=== PATIENT | female | born 1995 | race African-American/Black ===

== ENCOUNTER 2024-06-17 10:31 | Emergency (ER) | payer MEDICAID, SELFPAY ==
[2024-06-17 10:33] VITALS: BMI 30.2
[2024-06-17 10:59] VITALS: BP 116/73; PULSE 70; RESP 16; TEMP 36.8; O2SAT 98; BMI 30.2
--- NOTE | 2024-06-17 11:01 | XR_ITS ---
Examination: Pelvic ultrasound, transabdominal, complete Technique: Transabdominal ultrasound of the pelvis performed using grayscale imaging Date and time of exam: June 17, 2024 1237 hours INDICATIONS: 4 months ago with onset vaginal bleeding beginning 2 days ago FINDINGS: Uterus 9.2 cm endometrial stripe 0.8 cm No uterine mass or intrauterine gestation Right ovary 3.1 cm arterial flow Left ovary 2.7 cm arterial flow IMPRESSION: No uterine mass or intrauterine gestation
[2024-06-17 11:37] LABS: Collection Type, Urine Clean Catch; WBC,Urine 0 /hpf (0-5)
[2024-06-17 11:38] LABS: Basophils # (Auto) 0.1 Thou/mm3 (0.0-0.2); Basophils % (Auto) 1 % (0-2.5); Eosinophils # (Auto) 0.5 Thou/mm3 (0.0-0.5); Eosinophils % (Auto) 5 % (0-10); Hematocrit 32.9 % (36.0-46.0); Hemoglobin 11.6 g/dL (12.0-16.0); Immature Granulocytes % (Auto) 0 % (0-0); Immature Granulocytes Auto 0.02 Thou/mm3 (0.00-0.00); Lymphocytes # (Auto) 1.6 Thou/mm3 (1.0-4.8); Lymphocytes % (Auto) 19 % (10-50); Mean Corpuscular HGB Conc 35.3 g/dl (31.0-37.0); Mean Corpuscular Hemoglobin 26.7 pg (25.0-35.0); Mean Corpuscular Volume 76 fL (80-100); Monocytes # (Auto) 0.7 Thou/mm3 (0.0-0.8); Monocytes % (Auto) 9 % (0-12); Neutrophils # (Auto) 5.6 Thou/mm3 (1.8-7.7); Neutrophils % (Auto) 66 % (37-80); Nucleated Red Blood Cell % 0 /100 WBC (0); Platelet Count 380 Thou/mm3 (140-440); Red Blood Count 4.35 Miln/mm3 (4.00-5.20); White Blood Count 8.5 Thou/mm3 (3.6-11.0)
[2024-06-17 11:47] LABS: Bacteria,Urine Rare; Bilirubin,Urine Negative (Negative); Blood,Urine 3+ (Negative); Clarity,Urine Turbid (Clear/Hazy); Culture Indicated,Urine Not Indicated; Glucose, Urine Negative (Negative); Ketones,Urine Negative (Negative); Leukocyte Esterase,Urine Negative (Negative); Nitrite,Urine Negative (Negative); Protein,Urine 1+ (Neg - Trace); RBC,Urine 51 /hpf (0-3); Specific Gravity,Urine 1.023 (1.001-1.035); Squamous Epithelial Cell,Urine 2 /hpf (0-5); Urobilinogen,Urine Negative mg/dL (0.0-1.0)
[2024-06-17 11:55] LABS: Color,Urine Amber (Lt Yel-Yel)
[2024-06-17 11:57] LABS: Alanine Aminotransferase 16 U/L (10-49); Albumin, Serum 3.9 gm/dL (3.5-5.0); Albumin/Globulin Ratio 1.4 (1.2-2.2); Alkaline Phosphatase 110 U/L (46-116); Anion Gap 7 (7-16); Aspartate Amino Transferase 18 U/L (0-34); BUN/Creatinine Ratio 19 Ratio (12-20); Bilirubin,Total 0.7 mg/dL (0.3-1.2); Blood Urea Nitrogen 13 mg/dL (9-23); Calcium 8.7 mg/dL (8.3-10.6); Calcium (Corrected) 8.8 mg/dL (8.5-10.1); Carbon Dioxide 27.2 mMol/L (20.0-31.0); Chloride 107 mMol/L (98-107); Creatinine (Component) 0.7 mg/dL (0.6-1.3); Estimated Creatinine Clearance 116.9 mL/min (>60); Globulin 2.7 gm/dL (2.3-3.5); Glucose 89 mg/dL (74-106); Osmolality,Calculated 280 (275-295); Potassium 3.9 mMol/L (3.4-5.1); Sodium 141 mMol/L (136-145); Total Protein 6.6 gm/dL (5.7-8.2); eGFR > 60 See Note
[2024-06-17 11:58] LABS: Partial Thromboplastin Time 28.3 Seconds (22.0-36.0); Prothrombin Time 11.1 Seconds (9.0-12.2)
[2024-06-17 12:03] LABS: Strep A Rapid Negative (Negative)
[2024-06-17 12:10] LABS: HCG,Qualitative Serum Negative
--- NOTE | 2024-06-17 13:01 | EDNOTE_ITS ---
ED Female Urogenital RME/HPI General Chief complaint: Urogenital-Female Stated complaint: VAGINAL BLEEDING X 2 DAYS Time Seen by Provider: 06/17/24 10:46 Arrival date/time: 06/17/24 10:31 29-year-old female presents to the emergency department today stating that she is having vaginal bleeding patient reports this is her first period after having her baby 3 months ago patient reports history of ovarian cysts, PCOS, ulcerative colitis and Crohn's disease Limitations: no limitations Related Data Allergies Allergy/AdvReac Type Severity Reaction Status Date / Time risperidone Allergy Verified 06/17/24 10:42 Sulfa (Sulfonamide Allergy Verified 06/17/24 10:42 Antibiotics) Review of Systems Review of Systems Systems Reviewed: All systems reviewed, normal except as documented Constitutional Constitutional: Reports system reviewed and no additional complaints, except as documented, Denies fever(s) and Denies headache(s) Eyes Eyes: Reports system reviewed and no additional complaints, except as documented and Denies blurry vision ENT Ears, Nose, Mouth, and Throat: Reports system reviewed and no additional complaints, except as documented, Denies headache(s), Denies nasal congestion and Denies nasal discharge Cardiovascular Cardiovascular: Reports system reviewed and no additional complaints, except as documented, Denies chest pain and Denies dyspnea Respiratory Respiratory: Reports system reviewed and no additional complaints, except as documented, Denies chest congestion, Denies cough and Denies dyspnea Gastrointestinal Gastrointestinal: Reports system reviewed and no additional complaints, except as documented and Denies abdominal pain Genitourinary Genitourinary: Reports system reviewed and no additional complaints, except as documented and Reports abnormal vaginal bleeding Integumentary/Breasts Skin/Breast: Reports system reviewed and no additional complaints, except as documented and Denies rash Neurologic Neurologic: Reports system reviewed and no additional complaints, except as documented, Reports as per HPI and Denies headache(s) Past Medical History Social History SMOKING STATUS: Current some day smoker ED Exam General Limitations: Present no limitations General appearance: Present alert and in no apparent distress Head Head exam: Present atraumatic, normocephalic and normal inspection Eye Eye exam: Present normal appearance, PERRL and EOMI; Absent conjunctival injection ENT ENT exam: Present normal exam, normal oropharynx and mucous membranes moist Neck Neck exam: Present normal inspection, full ROM and trachea midline Chest Chest inspection: Present normal inspection and symmetric chest wall rise Respiratory Respiratory exam: Present normal lung sounds bilaterally Cardiovascular Cardiovascular exam: Present regular rate, normal rhythm and normal heart sounds Abdominal Exam Abdominal exam: Present soft and normal bowel sounds; Absent distention, tenderness, guarding, rebound or rigidity Extremities Exam Extremities exam: Present normal inspection and full ROM Back Exam Back exam: Present normal inspection and full ROM Neurological Exam Neurological exam: Present alert, oriented X3, CN II-XII intact, normal gait and reflexes normal; Absent motor sensory deficit Psychiatric Psychiatric exam: Present normal affect and normal mood Skin Skin exam: Present warm, dry, intact and normal color Course Quality Measures none Orders Category Date Time Status US pelvic complete Stat Exams 06/17/24 11:01 Taken CBC Stat Lab 06/17/24 11:01 Completed Comprehensive Metabolic Panel Stat Lab 06/17/24 11:01 Completed HCG,Qualitative Serum Stat Lab 06/17/24 11:01 Completed Partial Thromboplastin Time Stat Lab 06/17/24 11:01 Completed Prothrombin Time with INR Stat Lab 06/17/24 11:01 Completed Strep A Rapid Stat Lab 06/17/24 11:00 Completed UA, C/S IF [Urinalysis, C/S if Indicated] Stat Lab 06/17/24 11:00 Completed Vital Signs Vital signs: Vital Signs Temperature 98.3 F 06/17/24 10:59 Pulse Rate 70 06/17/24 10:59 Respiratory Rate 16 06/17/24 10:59 Blood Pressure 116/73 06/17/24 10:59 Pulse Oximetry (%) 98 06/17/24 10:59 Oxygen Delivery Method Room Air 06/17/24 10:59 o2 sat 98% r/a wnl Urogenital - Female MDM Narrative MDM Narrative:: 29-year-old female presents to the emergency department today stating that she is having vaginal bleeding patient reports this is her first period after having her baby 3 months ago patient reports history of ovarian cysts, PCOS, ulcerative colitis and Crohn's disease On exam patient well-appearing patient is not appear ill or toxic patient hemodynamically stable patient reports no headache dizziness or weakness Lab work as well as ultrasound obtained no acute emergent findings noted Patient struck to follow-up with post production assistant for further evaluation and treatment Patient discharged home in no distress to follow-up with primary care doctor in the next 24 to 48 hours and for any worsening symptoms to return to the ER immediately Patient data External records reviewed:: [facility] previous records Clinical information provided by:: patient Social determinants that could affect healthcare access:: none Patient has the following chronic illnesses:: none How is presenting disease/condition affected by chronic disease/condition?: uneffected by Evaluation data The following diagnostics were reviewed and interpreted by me:: lab results and radiology exam(s) Lab and/or radiology exams considered but not ordered:: Labs radiology obtained Interpretation Summary: Reviewed by me Medications / Prescriptions Medications or Prescriptions considered but not ordered:: No meds Medication administrations:: No meds Consultations Consultation(s) initiated? (list below): No Diagnosis Urogenital Female Differential Diagnosis: urinary tract infection, bacterial vaginosis, dysmenorrhea and other (Dysfunction uterine bleeding) Most likely diagnosis given after review of the tests above:: Heavy vaginal bleeding Admission Indicated Admission indicated?: not indicated Admission Request Was there a request for admission?: No Disposition Plan Disposition Plan: Discharge Discharge Attestation Discharge Attestation: The patient and all family members were given an opportunity to ask questions and understood the discharge instructions. Discharge instructions specifically effects, indications for sooner follow up or return to the emergency department, and the expected course of current diagnosis. Patient condition: Stable Discharge Plan Plan Patient Disposition: HOME (Self Care) Disposition Comment: Stable Prescriptions/Referrals Referrals: Vanesa Vincent MD [Primary Care Provider] - 06/19/24 Problem List Clinical Impression: Abnormal vaginal bleeding Patient/Caregiver Discharge Instructions Additional Instructions: Please follow up with your BACK HOE MACHINE OPERATOR in the next 24-48hrs for any worsening symptoms return here immediately Print Language: Venezuelan Stand Alone Forms: Katt Award Info., Work/School Release, Patient Portal Info Letter ANTIONETTE Supervising Physician ANTIONETTE Supervising Physician: Dr barber
== END 2024-06-17 18:07 | disposition home or self-care (01) ==
PROVIDERS: Nurse Practitioner Primary Care; Emergency Provider Emergency Medicine; PCP Student in an Organized Health Care Education/Training Program
DX: N93.9 Abnormal uterine and vaginal bleeding, unspecified (principal); E28.2 Polycystic ovarian syndrome; K50.90 Crohn's disease, unspecified, without complications
CPT/HCPCS: 36415; 76856; 80053; 81001; 84703; 85025; 85610; 85730; 87651; 99284

== ENCOUNTER 2024-06-24 16:19 | Emergency (ER) | payer MEDICAID, SELFPAY ==
--- NOTE | 2024-06-24 16:33 | PD.EDURI ---
Upper Respiratory Inf. RME/HPI General Chief Complaint: Dental/Oral/Throat Stated Complaint: SORE THROAT, COUGH Time Seen by Provider: 06/24/24 16:32 Source: patient, RN notes reviewed and old records reviewed Arrival date/time: 06/24/24 16:19 Mode of arrival: ambulatory Limitations: no limitations RME / HPI RME / HPI Narrative: 29yof presents to ED for 4-5-day history of sore throat and mild cough. Son is currently being treated for strep. Multiple family members currently have similar symptoms. No fever, congestion, shortness of breath, nausea/vomiting or headache reported. No medications or treatments today Related Data Previous Rx's ?Medication ?Instructions ?Recorded amoxicillin 500 mg tablet 1,000 mg (2 x 500 mg) PO QDAY 10 06/24/24 days #20 tabs benzonatate 100 mg capsule 100 mg PO Q6H PRN cough #30 caps 06/24/24 ibuprofen 600 mg tablet 600 mg PO Q6H PRN pain #20 tabs 06/24/24 Allergies Allergy/AdvReac Type Severity Reaction Status Date / Time risperidone Allergy Verified 06/24/24 16:21 Sulfa (Sulfonamide Allergy Verified 06/24/24 16:21 Antibiotics) Review of Systems Review of Systems Systems Reviewed: All systems reviewed, normal except as documented Constitutional Constitutional: Denies chills, Denies fever(s) and Denies headache(s) ENT Ears, Nose, Mouth, and Throat: Denies headache(s), Denies nasal congestion and Reports sore throat Cardiovascular Cardiovascular: Denies chest pain and Denies dyspnea Respiratory Respiratory: Reports cough and Denies dyspnea Gastrointestinal Gastrointestinal: Denies nausea and Denies vomiting Neurologic Neurologic: Denies headache(s) Past Medical History Past Medical History RESPIRATORY: Positive Asthma Social History SMOKING STATUS: Current every day smoker ED Exam General Limitations: Present no limitations General appearance: Present alert and in no apparent distress Head Head exam: Present atraumatic and normocephalic Eye Eye exam: Present normal appearance, PERRL and EOMI ENT ENT exam: Present mucous membranes moist, TM's normal bilaterally and other (Mild pharyngeal erythema. No tonsillar swelling or exudate, uvula midline) Neck Neck exam: Present normal inspection and full ROM; Absent meningismus Chest Chest inspection: Present normal inspection and symmetric chest wall rise Respiratory Respiratory exam: Present normal lung sounds bilaterally and other (No wheezing, rales or rhonchi); Absent respiratory distress Cardiovascular Cardiovascular exam: Present regular rate and normal rhythm Extremities Exam Extremities exam: Present normal inspection and full ROM Neurological Exam Neurological exam: Present alert and oriented X3 Psychiatric Psychiatric exam: Present normal affect and normal mood Skin Skin exam: Present warm, dry, intact and normal color Course Quality Measures none Vital Signs Vital signs: Vital Signs Temperature 98 F 06/24/24 16:45 Pulse Rate 90 06/24/24 16:45 Respiratory Rate 18 06/24/24 16:45 Blood Pressure 120/86 H 06/24/24 16:45 Pulse Oximetry (%) 99 06/24/24 16:45 Oxygen Delivery Method Room Air 06/24/24 16:45 Upper Respiratory Infection MDM Narrative MDM Narrative:: 29yof presents to ED for 4-5-day history of sore throat and mild cough. Son is currently being treated for strep. Multiple family members currently have similar symptoms. No fever, congestion, shortness of breath, nausea/vomiting or headache reported. No medications or treatments today. Will treat for strep based on recent exposure. Patient is well-appearing, afebrile, vitals are stable. Recommended motrin/tylenol, cepacol lozenges prn pain. Stable for dc, RTED precautions given. Patient data External records reviewed:: [facility] previous records (06/17/24 ED visit for abnormal vaginal bleeding) Clinical information provided by:: patient Social determinants that could affect healthcare access:: other (specify) (Poor access to healthcare) Patient has the following chronic illnesses:: Asthma How is presenting disease/condition affected by chronic disease/condition?: uneffected by Evaluation data The following diagnostics were reviewed and interpreted by me:: other (specify) (None) Lab and/or radiology exams considered but not ordered:: Strep: Plan to treat based on recent exposure and exam Interpretation Summary: na Medications / Prescriptions Medications or Prescriptions considered but not ordered:: None Medication administrations:: None Consultations Consultation(s) initiated? (list below): No Diagnosis Upper Respiratory Differential Diagnosis: upper respiratory infection, viral infection, influenza and pharyngitis Most likely diagnosis given after review of the tests above:: Pharyngitis, strep exposure Admission Indicated Admission indicated?: not indicated Admission Request Was there a request for admission?: No Disposition Plan Disposition Plan: Discharge Discharge Attestation Discharge Attestation: The patient and all family members were given an opportunity to ask questions and understood the discharge instructions. Discharge instructions specifically effects, indications for sooner follow up or return to the emergency department, and the expected course of current diagnosis. Patient condition: Stable Discharge Plan Plan Patient Disposition: HOME (Self Care) Patient condition on transfer: Stable Prescriptions/Referrals Prescriptions/Med Rec: New amoxicillin 500 mg tablet 1,000 mg PO QDAY 10 Days Qty: 20 0RF ibuprofen 600 mg tablet 600 mg PO Q6H PRN (Reason: pain) Qty: 20 0RF benzonatate 100 mg capsule 100 mg PO Q6H PRN (Reason: cough) Qty: 30 0RF Referrals: No Primary/Family,Physician [Primary Care Provider] - In 1 week Problem List Clinical Impression: Pharyngitis, Exposure to strep throat Patient/Caregiver Discharge Instructions Education Materials: Self-Care for Sore Throats Print Language: Uruguayan Stand Alone Forms: Katt Award Info., Patient Portal Info Letter PA/JITENDRA Supervising Physician RODRIGO/JITENDRA Supervising Physician: Mario
[2024-06-24 16:45] VITALS: BP 120/86; PULSE 90; RESP 18; TEMP 36.6; O2SAT 99; BMI 29.0
== END 2024-06-24 18:13 | disposition home or self-care (01) ==
PROVIDERS: Emergency Provider Emergency Medicine
DX: J02.9 Acute pharyngitis, unspecified (principal); Z20.818 Contact with and (suspected) exposure to other bacterial communicable diseases
CPT/HCPCS: 87400; 87811; 99281